=== PATIENT | female | born 1960 | race Caucasian/White ===

== ENCOUNTER 2016-08-02 09:32 | Emergency (ER) | payer MEDICARE, MEDICAID ==
[2016-08-02 10:42] VITALS: BP 117/64
--- NOTE | 2016-08-02 11:55 | UC ---
Abdominal Pain Female HPI - HPI Summary HPI Summary: has had issues with constipation for over one month---is concerned that it is not resolving she has an appointment with PCP on the ---today she additionally c/o some discomfort with urination and right side back pain as well - History of Current Complaint Chief Complaint: UCAbdominalPain Stated Complaint: CONSTIPATION Time Seen by Provider: 08/02/16 10:42 Hx Obtained From: Patient Hx Last Menstrual Period: n/a ?: No Onset/Duration: Gradual Onset, Lasting Weeks, Still Present, Worse Since - past few days Timing: Constant Severity Initially: Mild Severity Currently: Moderate Location: Diffuse - abd pain and some flank/back pain Radiates: No Character: Other - full like it has playdough in it Aggravating Factor(s): Nothing Alleviating Factor(s): Nothing Associated Signs and Symptoms: Positive: Constipation - brown stool the size of minnows---she states she walks alot and eats plenty of friuts and vegtables-- probably does not drink enough water as it has no taste, Urinary Symptoms, Nausea Allergies/Adverse Reactions: Allergies Allergy/AdvReac Type Severity Reaction Status Date / Time No Known Allergies Allergy Verified 02/18/15 11:35 PMH/Surg Hx/FS Hx/Imm Hx Previously Healthy: No - processing disorder Endocrine History Of: Reports: Thyroid Disease Denies: Diabetes Cardiovascular History Of: Denies: Cardiac Disorders, Hypertension Respiratory History Of: Denies: Asthma - Surgical History Surgical History: Yes Surgery Procedure, Year, and Place: breast reduction surgery 08/2010. hysterectomy. appendectomy - Family History Known Family History: Positive: None Family History: no known cardio vascular issues in family lineage - Social History Occupation: Employed Part-time Lives: Alone Alcohol Use: Rare Substance Use Type: None Smoking Status (MU): Never Smoked Tobacco Review of Systems Constitutional: Negative Skin: Negative Eyes: Negative ENT: Negative Respiratory: Negative Cardiovascular: Negative Gastrointestinal: Abdominal Pain Genitourinary: Dysuria Motor: Negative Neurovascular: Negative Musculoskeletal: Negative Neurological: Negative Psychological: Negative All Other Systems Reviewed And Are Negative: Yes Physical Exam Triage Information Reviewed: Yes Appearance: Well-Appearing, No Pain Distress, Well-Nourished Vital Signs: Initial Vital Signs Temp 98.3 F 08/02/16 10:17 Pulse 64 08/02/16 10:17 Resp 16 08/02/16 10:17 BP 117/64 08/02/16 10:17 Pulse Ox 100 08/02/16 10:17 Vital Signs Reviewed: Yes Eye Exam: Normal Eyes: Positive: Conjunctiva Clear ENT Exam: Normal ENT: Positive: Normal ENT inspection, Hearing grossly normal, Pharynx normal. Negative: Nasal congestion, Nasal drainage, Trismus, Muffled/hoarse voice Neck exam: Normal Neck: Positive: Supple, Nontender, No Lymphadenopathy Respiratory Exam: Normal Respiratory: Positive: Chest non-tender, Lungs clear, Normal breath sounds, No respiratory distress, No accessory muscle use Cardiovascular Exam: Normal Cardiovascular: Positive: RRR, No Murmur, Pulses Normal, Brisk Capillary Refill Abdomen Description: Positive: Soft, CVA Tenderness (R), CVA Tenderness (L). Negative: No Organomegaly, Distended, Guarding, Hepatomegaly, McBurney's Point Tenderness, Peritoneal Signs, Pulsatile Mass, Splenomegaly Bowel Sounds: Positive: Present Musculoskeletal Exam: Normal Musculoskeletal: Positive: Strength Intact, ROM Intact, No Edema Neurological Exam: Normal Neurological: Positive: Alert, Muscle Tone Normal Psychological Exam: Normal Skin Exam: Normal Diagnostics - Laboratory Diagnostic Studies Completed/Ordered: CT-no evidence of obstruction, renal colic , hydr, diverticulitis---positive for moderate amout of stool and diverticula Abd Pain Female Course/Dx - Course Course Of Treatment: increase fruits, fibers , fluids, vegatables, follow with pcp as planned use Miralx daily for 7 days, - Differential Dx/Diagnosis Differential Diagnosis: Appendicitis, Bowel Obstruction, Constipation, Irritable Bowel Syndrome, Urinary Tract Infection Provider Diagnoses: Constipation Discharge - Discharge Plan Condition: Stable Disposition: HOME Patient Education Materials: Polyethylene Glycol 3350 (By mouth), Constipation (ED), High Fiber Diet (ED) Referrals: Oly Oseguera MD [Primary Care Provider] - 08/08/16
--- NOTE | 2016-08-02 13:22 | RAD ---
INDICATION: Constipation. Microscopic hematuria. Assess for urolithiasis. Post appendectomy and hysterectomy. COMPARISON: May 12, 2009 TECHNIQUE: Multidetector CT images were obtained from the lung bases to the ischial tuberosities. Evaluation of the viscera is limited without IV contrast. Multiplanar reformation. REPORT: 2 mm subpleural nodule at the junction of the anteromedial and lateral basal segments of the LEFT lower lobe is unchanged from the 2009 exam without concern. The liver, gallbladder, pancreas, and spleen are unremarkable. Negative for CT abnormality of the upper GI. Fecalization of the chyme within the distal and terminal ileum suggesting decreased small bowel motility. No bowel dilatation to indicate obstruction. Post appendectomy. Moderate stool throughout the colon. A few colonic diverticula are visualized. No evidence for acute diverticulitis. Negative for ascites, free air, or significant hernias. 1.3 cm diameter LEFT adrenal nodule while new compared with the 2009 exam is consistent with a benign lipid rich adenoma based on low density measurement. Unremarkable RIGHT adrenal gland. The kidneys are symmetric in size and without evidence for focal lesions or hydronephrosis. Unremarkable ureters and partially distended urinary bladder. Negative for urolithiasis. Unremarkable retroverted and LEFT deviated uterus cervical stump. No adnexal lesions evident. Multiple pelvic phleboliths noted. Negative for lymphadenopathy by short axis criteria. Minimal calcific plaque of the abdominal aorta and iliac arteries without aortoiliac aneurysm. Partial decompression of the IVC indicating lower volume state. Sharply circumscribed homogeneous fat density 1.6 x 2.5 x 3.1 cm mass within the LEFT abdominal wall musculature laterally adjacent to the anterior superior iliac spine with increased from 1.2 cm maximum dimension on the 2009 exam. In absence of pain associated with this lesion is consistent with a benign lipoma. Characteristic benign osseous hemangioma at the T8 vertebral body measuring up to 2.4 cm maximum dimension. A few small bone islands are noted about the pelvis. No suspicious focal osseous lesions or fractures. IMPRESSION: 1. Negative for urolithiasis or hydronephrosis. No etiology for microscopic hematuria evident within limits of noncontrast CT. 2. Moderate stool in the colon. While a few colonic diverticula are visualized there is no evidence for acute diverticulitis. 3. Fecalization of the chyme within the distal and terminal ileum suggesting decreased small bowel motility. No bowel dilatation to indicate obstruction.
== END 2016-08-02 14:16 | disposition home or self-care (01) ==
LOC: UCCORT 09:32
DX: K59.00 Constipation, unspecified (principal); K57.30 Diverticulosis of large intestine without perforation or abscess without bleeding; K59.8 Other specified functional intestinal disorders; R30.9 Painful micturition, unspecified
CPT/HCPCS: 74176; 87086; 99211; G0463

== ENCOUNTER 2016-10-18 09:43 | Emergency (ER) | payer MEDICARE, MEDICAID ==
[2016-10-18] MEDS ORDERED: Adenosine SYRINGE* 6 MG/2 ML IV PUSH ONE (10:51)
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
[2016-10-18 11:25] VITALS: BP 118/69
== END 2016-10-18 11:42 | disposition short-term general hospital (02) ==
LOC: UCCORT 09:43
DX: I47.1 Supraventricular tachycardia (principal); F43.10 Post-traumatic stress disorder, unspecified; X58.XXXA Exposure to other specified factors, initial encounter; Y93.9 Activity, unspecified; Y92.9 Unspecified place or not applicable; R07.89 Other chest pain
CPT/HCPCS: 93005; 99213; G0463; J0153

== ENCOUNTER 2018-06-03 08:00 | Emergency (ER) | payer MEDICARE, MEDICAID ==
[2018-06-03 08:25] VITALS: BP 125/70
--- NOTE | 2018-06-03 08:30 | UC ---
UC General HPI - HPI Summary HPI Summary: 57 year old female presents stating she was told by a friend that she may have tardiv dyskinesia because her posture is poor and she is taking an antidepressant. She denies pain, stiffness, muscle spasm. - History of Current Complaint Stated Complaint: NECK/SHOULDER CONCERN Time Seen by Provider: 06/03/18 08:17 Hx Obtained From: Patient Hx Last Menstrual Period: n/a Current Severity: None - Allergy/Home Medications Allergies/Adverse Reactions: Allergies Allergy/AdvReac Type Severity Reaction Status Date / Time No Known Allergies Allergy Verified 02/18/15 11:35 Home Medications: Home Medications Citalopram TAB* [CeleXA TAB*] 10 mg PO DAILY 06/03/18 [History Confirmed ] PMH/Surg Hx/FS Hx/Imm Hx Endocrine History: Hypothyroidism Psychological History: Depression Other Psychological History: Autism - Surgical History Surgical History: Yes Surgery Procedure, Year, and Place: breast reduction surgery 08/2010. hysterectomy. appendectomy - Family History Known Family History: Positive: None Negative: Cardiac Disease Family History: no known cardio vascular issues in family lineage - Social History Alcohol Use: Rare Substance Use Type: None Smoking Status (MU): Never Smoked Tobacco Review of Systems Constitutional: Negative Skin: Negative Respiratory: Negative Cardiovascular: Negative Motor: Negative Neurovascular: Negative Musculoskeletal: Negative Is Patient Immunocompromised?: No All Other Systems Reviewed And Are Negative: Yes Physical Exam Triage Information Reviewed: Yes Appearance: Well-Appearing, No Pain Distress, Well-Nourished Vital Signs Reviewed: Yes Neck: Positive: Supple, Nontender, No Lymphadenopathy Respiratory: Positive: Lungs clear, Normal breath sounds, No respiratory distress Cardiovascular: Positive: RRR, No Murmur, Pulses Normal, Brisk Capillary Refill Musculoskeletal: Positive: Strength Intact, ROM Intact Neurological: Positive: Alert, Other: - Sensation intact distally Skin Exam: Normal Course/Dx - Course Course Of Treatment: 57 year old female with autism presents with concern for tardiv dyskinesia because her friend told her that may be the cause of her poor posture since she was taking an antidepressant. Patient is assymptomatic and without complaints. Exam is unremarkable. Counseled patient that her medication regimen was not typically associated with this condition and that since she was not having any symptoms she should follow up with her PCP for further concerns. Verbalizes understanding and agrees with POC. - Differential Dx - Multi-Symptom Provider Diagnoses: abnormal posture Discharge - Sign-Out/Discharge Documenting (check all that apply): Patient Departure All imaging exams completed and their final reports reviewed: No Studies - Discharge Plan Condition: Stable Disposition: HOME Referrals: Oly Oseguera MD [Primary Care Provider] - If Needed Additional Instructions: It is very unlikely that you have the condition called tardiv dyskinesia as you are not taking medications commonly associated with this condition. Try to be very conscious of your posture. Follow up with you primary care provider if you have any further concerns. You may want to discuss physical therapy with your primary care provider if this continues to be a concern. - Billing Disposition and Condition Condition: STABLE Disposition: Home
== END 2018-06-03 08:46 | disposition home or self-care (01) ==
LOC: UCCORT 08:00
DX: R29.3 Abnormal posture (principal); E03.9 Hypothyroidism, unspecified; F32.9 Major depressive disorder, single episode, unspecified; F84.0 Autistic disorder
CPT/HCPCS: 99211; G0463

== ENCOUNTER 2019-04-22 14:30 | Emergency (ER) | payer MEDICARE, MEDICAID ==
[2019-04-22 15:19] VITALS: BP 109/53
--- NOTE | 2019-04-22 15:47 | UC ---
Skin Complaint HPI - HPI Summary HPI Summary: 58-year-old female comes in with a chief complaint of a skin lesion on her back and on her right lower leg. Patient's notices a bump on her back she wonders if it's cancer. Also has a bump on her right galvan wonders if it's cancer. Patient does not know how long these of been there. Are not painful. Patient feels well. - History of Current Complaint Chief Complaint: UCSkin Time Seen by Provider: 04/22/19 15:30 Stated Complaint: SKIN COMP Hx Last Menstrual Period: n/a Pain Intensity: 0 - Allergy/Home Medications Allergies/Adverse Reactions: Allergies Allergy/AdvReac Type Severity Reaction Status Date / Time No Known Allergies Allergy Verified 04/22/19 15:19 PMH/Surg Hx/FS Hx/Imm Hx Previously Healthy: Yes Endocrine History: Hypothyroidism - Surgical History Surgical History: Yes Surgery Procedure, Year, and Place: breast reduction surgery 08/2010. hysterectomy. appendectomy - Family History Known Family History: Positive: None Negative: Cardiac Disease Family History: no known cardio vascular issues in family lineage - Social History Alcohol Use: Rare Substance Use Type: None Smoking Status (MU): Never Smoked Tobacco Review of Systems All Other Systems Reviewed And Are Negative: Yes Constitutional: Positive: Negative Skin: Positive: Other - SEE HPI Eyes: Positive: Negative ENT: Positive: Negative Respiratory: Positive: Negative Cardiovascular: Positive: Negative Gastrointestinal: Positive: Negative Motor: Positive: Negative Neurovascular: Positive: Negative Musculoskeletal: Positive: Negative Neurological: Positive: Negative Psychological: Positive: Negative Is Patient Immunocompromised?: No Physical Exam Triage Information Reviewed: Yes Appearance: Well-Appearing, No Pain Distress, Well-Nourished Vital Signs: Initial Vital Signs Temp 98.2 F 04/22/19 15:11 Pulse 71 04/22/19 15:11 Resp 18 04/22/19 15:11 BP 109/53 04/22/19 15:11 Pulse Ox 99 04/22/19 15:11 Vital Signs Reviewed: Yes Eye Exam: Normal Eyes: Positive: Conjunctiva Clear Neck: Positive: Supple Respiratory: Positive: No respiratory distress Musculoskeletal: Positive: Strength Intact, ROM Intact Neurological: Positive: Alert Psychological: Positive: Age Appropriate Behavior Skin: Positive: Other - On the right lower leg there is a skin lesion slightly raised 1 cm in diameter it's firm. There is no pigment. Has the appearance of an inclusion cyst. On the midline of the back at approximately L2 level there is a skin colored appendage also nonpigmented that is 4 mm in height. Course/Dx - Course Course Of Treatment: On the right leg it appears there may be is inclusion cyst. On the back it up has the appearance of either a raised molar skin tag. Neither has pigment to them. The plan is to follow-up with dermatology for further evaluation and treatment. - Diagnoses Provider Diagnosis: Skin lesion of back, Skin lesion of right leg Discharge ED - Sign-Out/Discharge Documenting (check all that apply): Patient Departure All imaging exams completed and their final reports reviewed: No Studies - Discharge Plan Condition: Stable Disposition: HOME Referrals: Becki June NP [Primary Care Provider] - Melissa Cedeño [Medical Doctor] - Additional Instructions: FOLLOW UP WITH DERMATOLOGY FOR YOUR SKIN LESIONS. GET RECHECKED SOONER IF WORSE OR ANY QUESTIONS OR CONCERNS. - Billing Disposition and Condition Condition: STABLE Disposition: Home
== END 2019-04-22 15:51 | disposition home or self-care (01) ==
LOC: UCCORT 14:30
DX: L98.9 Disorder of the skin and subcutaneous tissue, unspecified (principal)
CPT/HCPCS: 99211; G0463